=== PATIENT | female | born 1990 | race Caucasian/White ===

== ENCOUNTER 2019-07-05 19:04 | Emergency (ER) | payer OTHER ==
[2019-07-05 19:18] VITALS: BP 107/67
--- NOTE | 2019-07-05 21:05 | UC ---
Hand/Wrist HPI - HPI Summary HPI Summary: PATIENT STRUCK HER RIGHT WRIST ON A METAL DOOR FRAME ABOUT A WEEK AGO. SYMPTOMS WERE IMPROVING BUT THEN YESTERDAY WAS WORKING OUT AND DOING PLANKS AND PUSHUPS. SINCE THEN SHE HAS NOTICED INCREASED PAIN AND FULLNESS AT THE INJURED AREA. - History Of Current Complaint Chief Complaint: UCUpperExtremity Stated Complaint: RIGHT WRIST INJURY Time Seen by Provider: 07/05/19 19:28 Hx Obtained From: Patient Hx Last Menstrual Period: Onset/Duration: Sudden Onset, Lasting Days, Still Present Severity Initially: Moderate Severity Currently: Moderate Pain Intensity: 3 Pain Scale Used: 0-10 Numeric Character Of Pain: Sharp Aggravating Factor(s): Movement Alleviating Factor(s): Rest Associated Signs And Symptoms: Negative: Numbness/Tingling Related History: Dominant Hand Right - Allergies/Home Medications Allergies/Adverse Reactions: Allergies Allergy/AdvReac Type Severity Reaction Status Date / Time codeine Allergy Vomiting Verified 07/05/19 19:19 Home Medications: Home Medications Oral Control 1 tab PO DAILY 07/05/19 [History] PMH/Surg Hx/FS Hx/Imm Hx Previously Healthy: Yes - Surgical History Surgical History: Yes Surgery Procedure, Year, and Place: orthopedic repairs - Family History Known Family History: Positive: Non-Contributory - Social History Alcohol Use: Occasionally Substance Use Type: None Smoking Status (MU): Never Smoked Tobacco Review of Systems All Other Systems Reviewed And Are Negative: Yes Constitutional: Positive: Negative Skin: Positive: Negative Respiratory: Positive: Negative Cardiovascular: Positive: Negative Gastrointestinal: Positive: Negative Musculoskeletal: Positive: Arthralgia, Decreased ROM Physical Exam Triage Information Reviewed: Yes Appearance: Well-Appearing, No Pain Distress, Well-Nourished Vital Signs: Initial Vital Signs Temp 97.9 F 07/05/19 19:14 Pulse 66 07/05/19 19:14 Resp 16 07/05/19 19:14 BP 107/67 07/05/19 19:14 Pulse Ox 100 07/05/19 19:14 Vital Signs Reviewed: Yes Eyes: Positive: Conjunctiva Clear ENT: Positive: Hearing grossly normal Neck: Positive: Supple Respiratory: Positive: No respiratory distress, No accessory muscle use Cardiovascular: Positive: Pulses Normal Abdomen Description: Positive: Soft Musculoskeletal: Positive: No Edema, ROM Limited @ - RIGHT WRIST EXTENSION, Other: - TTP RIGHT WRIST OVERLYING PISIFORM AND FLEXOR TENDONS Neurological: Positive: Alert Psychological: Positive: Age Appropriate Behavior Skin: Negative: Rashes Diagnostics - Radiology RIGHT WRIST XRAYS Radiology Interpretation Completed By: ED Physician Summary of Radiographic Findings: NO FRACTURE Hand/Wrist Course/Dx - Course Course Of Treatment: RIGHT WRIST X-RAY IS UNREMARKABLE ON MY INITIAL INTERPRETATION. RADIOLOGY READ PENDING. PATIENT LIKELY STRAINED HER FLEXOR TENDONS YESTERDAY WHILE WORKING OUT. COCK-UP SPLINT APPLIED BY RN TO HELP OFFLOAD PRESSURE AND PROVIDE SOME SUPPORT. SYMPTOMS SHOULD IMPROVE OVER THE NEXT COUPLE OF WEEKS. IF NOT FOLLOW- UP WITH ORTHOPEDICS. OTC MEDICATIONS NEEDED FOR DISCOMFORT. - Differential Dx/Diagnosis Provider Diagnosis: Right wrist tendonitis Discharge ED - Sign-Out/Discharge Documenting (check all that apply): Patient Departure All imaging exams completed and their final reports reviewed: No - Discharge Plan Condition: Stable Disposition: HOME Patient Education Materials: Tendinitis (ED) Referrals: Susu Mcknight MD [Medical Doctor] - If Needed Additional Instructions: X-RAY OF YOUR RIGHT WRIST TODAY UNREMARKABLE FOR FRACTURE OR DISLOCATION ON MY INITIAL INTERPRETATION. WE WILL CALL YOU TOMORROW IF THE RADIOLOGY READ DIFFERS. I SUSPECT YOU HAVE DEVELOPED A TENDINITIS IN YOUR RIGHT WRIST. WEAR THE SPLINT AT NIGHT WHILE SLEEPING AND DURING THE DAY ABLE TO HELP OFFLOAD PRESSURE AND TO REDUCE REPETITIVE MOVEMENTS WHICH MAY MAKE YOUR SYMPTOMS WORSE. OTC ANTI-INFLAMMATORIES NEEDED FOR DISCOMFORT. FOLLOW-UP WITH ORTHOPEDICS IF YOUR SYMPTOMS DO NOT IMPROVE OVER THE NEXT COUPLE OF WEEKS. - Billing Disposition and Condition Condition: STABLE Disposition: Home
--- NOTE | 2019-07-06 14:35 | UC ---
- Progress Note Progress Note: Final radiologist reading of right wrist x-ray from July 05, 2019 is no fracture. Provider interpretation same is same therefore there is no discrepancy. Course/Dx - Diagnoses Provider Diagnoses: Right wrist tendonitis Discharge ED - Sign-Out/Discharge Documenting (check all that apply): Patient Departure All imaging exams completed and their final reports reviewed: Yes - Discharge Plan Condition: Stable Disposition: HOME Patient Education Materials: Tendinitis (ED) Referrals: Susu Mcknight MD [Medical Doctor] - If Needed Additional Instructions: X-RAY OF YOUR RIGHT WRIST TODAY UNREMARKABLE FOR FRACTURE OR DISLOCATION ON MY INITIAL INTERPRETATION. WE WILL CALL YOU TOMORROW IF THE RADIOLOGY READ DIFFERS. I SUSPECT YOU HAVE DEVELOPED A TENDINITIS IN YOUR RIGHT WRIST. WEAR THE SPLINT AT NIGHT WHILE SLEEPING AND DURING THE DAY ABLE TO HELP OFFLOAD PRESSURE AND TO REDUCE REPETITIVE MOVEMENTS WHICH MAY MAKE YOUR SYMPTOMS WORSE. OTC ANTI-INFLAMMATORIES NEEDED FOR DISCOMFORT. FOLLOW-UP WITH ORTHOPEDICS IF YOUR SYMPTOMS DO NOT IMPROVE OVER THE NEXT COUPLE OF WEEKS. - Billing Disposition and Condition Condition: STABLE Disposition: Home
== END 2019-07-05 20:05 | disposition home or self-care (01) ==
LOC: UCEAST 19:04
DX: M77.8 Other enthesopathies, not elsewhere classified (principal); Z88.5 Allergy status to narcotic agent
CPT/HCPCS: 99202; G0463